=== PATIENT | male | born 1985 | race Asian ===

== ENCOUNTER 2022-02-25 11:23 | Emergency (ER) | payer OTHER ==
[~2022-02-25] VITALS: Ht 167.6 cm; Wt 79.0 kg
[2022-02-25 11:29] VITALS: BP 144/78
== END 2022-02-25 13:09 | disposition home or self-care (01) ==
LOC: ER 13:03
DX: B34.9 Viral infection, unspecified (principal); H53.8 Other visual disturbances
CPT/HCPCS: 99281